=== PATIENT | female | born 1965 | race Caucasian/White ===

== ENCOUNTER → 2017-11-22 10:19 | Outpatient (CLI) | payer MEDICAID | END | disposition home or self-care (01) | LOC: D.NM 10:19 | DX: R10.9 Unspecified abdominal pain (principal); R11.2 Nausea with vomiting, unspecified ==

== ENCOUNTER 2018-03-20 22:38 | Emergency (ER) | payer MEDICAID ==
[~2018-03-20] VITALS: Ht 152.4 cm; Wt 65.9 kg
[2018-03-20 22:48] VITALS: Ht 152.4 cm; Wt 65.9 kg
[2018-03-20] MEDS ORDERED: ASPIRIN325 MG (22:50)
[2018-03-21 00:12] LABS: APPEARANCE CLEAR (CLEAR); BILIRUBIN NEGATIVE (NEGATIVE); COLOR YELLOW (YELLOW); GLUCOSE NEGATIVE (NEGATIVE); KETONE NEGATIVE (NEGATIVE); NITRITE NEGATIVE (NEGATIVE); PROTEIN NEGATIVE (NEGATIVE); SPECIFIC GRAVITY 1.015 (1.005-1.020); UROBILINOGEN NORMAL (NORMAL)
[2018-03-21 00:14] LABS: BACTERIA NONE SEEN /hpf (NONE SEEN); EPITHELIAL CELLS 0-5 /hpf (0-5); RED CELLS - URINE 0-5 /hpf (0-5); WHITE CELLS - URINE 0-5 /hpf (0-5)
[2018-03-21] MEDS ORDERED: CYCLOBENZAPRINE10 MG PO (01:41)
[2018-03-21] MEDS ORDERED: ACETAMINOPHEN500 M1 PO (01:41)
[2018-03-21] MEDS ORDERED: IBUPROFEN800 MG PO (01:41)
[2018-03-21 02:10] VITALS: BP 151/82
== END 2018-03-21 02:18 | disposition home or self-care (01) ==
LOC: D.ER 22:38
PROVIDERS: Family Medicine
DX: M54.5 Low back pain (principal); M54.31 Sciatica, right side; M62.830 Muscle spasm of back; Z86.73 Personal history of transient ischemic attack (TIA), and cerebral infarction without residual deficits

== ENCOUNTER 2019-03-26 08:37 | Outpatient (CLI) | payer MEDICAID ==
[2018-03-20 22:48] VITALS: BMI 28.3
[~2019-03-26 08:37] MED LIST: ACETAMINOPHEN500 M1 PO; ASPIRIN325 MG PO; CYCLOBENZAPRINE10 MG PO; IBUPROFEN800 MG PO
[2019-05-27] MEDS ORDERED: VERAPAMIL PO (09:24)
[2019-05-27] MEDS ORDERED: HCTZ25 MG PO (09:26)
[2019-05-27] MEDS ORDERED: TOPAMAX200 MG PO (09:29)
[2019-05-27] MEDS ORDERED: VERAPAMIL HCL80 MG PO ×2 (13:02→13:03)
[2019-05-28 17:32] VITALS: BMI 27.5
== END 2019-03-26 10:12 | disposition home or self-care (01) ==
LOC: D.OPS 08:37
PROVIDERS: ATTEND Surgery
DX: K44.9 Diaphragmatic hernia without obstruction or gangrene (principal)

== ENCOUNTER 2019-05-28 06:30 | Day surgery (SDC) | payer MEDICAID ==
[2019-05-27 10:35] LABS: BASOPHILS 0.1 % (0-2); EOSINOPHILS 1.3 % (0-7); HEMATOCRIT 39.5 % (36.0-48.0); HEMOGLOBIN 13.1 g/dL (12-16); IMMATURE GRANULOCYTES 0.3 % (0-5); LYMPHOCYTES 23.4 % (15-50); MCH 31.1 pg (26.0-34.0); MCHC 33.2 g/dL (31.0-37.0); MCV 93.8 fL (80.0-100.0); MONOCYTES 7.6 % (2-11); NEUTROPHILS 67.3 % (40-80); PLATELET COUNT 376 10x3/uL (130-400); RBC 4.21 10x6/uL (4.00-5.40); RDW 13.7 % (11.5-14.5); WBC 10.1 10x3/uL (4.8-10.8)
[2019-05-27 10:51] LABS: CALC OSMOLALITY 279 mosm/kg (275-300); CALCIUM 9.1 mg/dL (8.5-10.1); CARBON DIOXIDE 27.6 mmol/L (21.0-32.0); CHLORIDE - SERUM 104 mmol/L (98-107); CREATININE - SERUM 0.6 mg/dL (0.6-1.3); GLUCOSE 92 mg/dL (74-106); POTASSIUM - SERUM 3.8 mmol/L (3.5-5.1); SODIUM 141 mmol/L (136-145); UREA NITROGEN 9 mg/dL (7-18); eGFR NON AFRICAN AMERICAN > 90 mL/min (90-120)
[2019-05-28] VITALS (11 sets, daily range): BP systolic 132–161; BP diastolic 80–98; Ht 157.5 cm; Wt 68.2 kg
[~2019-05-28] VITALS: Ht 157.5 cm; Wt 68.2 kg
--- NOTE | ~2019-05-28 | OP ---
PATIENT NAME: TANVI KINCAID MEDICAL RECORD: [id number] :63 LOCATION:D.[facility] [place].2230 ADMISSION DATE: SURGEON: OSBALDO MCNEAL MD DATE OF OPERATION: 05/28/2019 PREOPERATIVE DIAGNOSES: 1. Paraesophageal hernia. 2. Gastroesophageal reflux disease. 3. Esophageal dysmotility. 4. Hypertension. 5. History of cerebrovascular accident. POSTOPERATIVE DIAGNOSES: 1. Paraesophageal hernia. 2. Gastroesophageal reflux disease. 3. Esophageal dysmotility. 4. Hypertension. 5. History of cerebrovascular accident. PROCEDURE: Laparoscopic paraesophageal hernia repair with Toupet fundoplication. SURGEON: Osbaldo Mcneal MD REPORT OF PROCEDURE: The patient's abdomen was prepped and draped in sterile fashion. A Veress needle was inserted in the left upper quadrant and the abdomen was insufflated. An 11-mm Visiport trocar was inserted in the midline just above the umbilicus. We could see the Veress needle and there was no sign of any injury to bowel or surrounding structures, so this was removed. An 11-mm trocar was then placed in the left subcostal region, a 5-mm trocar was placed in the epigastrium, a 5-mm trocar was placed in the right lateral subcostal region, and a final 5-mm trocar was placed in left lateral abdomen. We were able to grasp the patient's stomach, which was extending about a third of the way up into the patient's chest. We placed a liver retractor to elevate the left lobe of the liver. We were able to pull this portion of the stomach down, but with release it would fall back into the thoracic cavity. We began our dissection by taking down the lesser omentum using Harmonic scalpel up to the right side of the right brenda. The dissection was completed as far anteriorly and posteriorly as possible and then we scored the peritoneum and entered the thoracic cavity taking down the hernia sac. We continued this dissection deep up into the patient's chest. Eventually, we went to the greater curvature of the stomach and starting on the upper third of the stomach, we took down the short gastrics using Harmonic scalpel. We continued this over the fundus and to the left side of the right brenda and again we scored the peritoneum and took down the hernia sac until we had a 360-degree inspection of the patient's esophagus. The hernia sac was then excised. We could see the layout of the gastroesophageal junction more clearly. Once this was in place, we could see the esophageal hiatus and it was enlarged. We reapproximated the edges of this using interrupted 0 Polydeks times 3. There was good approximation of the tissue and it appeared to rest around the esophagus nicely. We then performed a 270-degree posterior wrap of the fundus of the stomach around the distal esophagus. This was sutured in place with interrupted 0 Polydeks times 6. The wrap appeared to rest in good position and did not appear to be causing too much tension. The abdomen was inspected and there was no sign of any active bleeding present. We then closed the 11-mm trocar site fascias using interrupted 0 Vicryls using a OPERATIVE REPORT [id number] ATNVI KINCAID suture passer device. The ports and insufflation were then removed. The skin incisions were infused with a total of 10 mL of 0.25% Marcaine with epinephrine and then closed with subcutaneous 5-0 Monocryl. COMPLICATIONS: None. CONDITION: Stable. ANESTHESIA: General endotracheal and local. BLOOD LOSS: Minimal. TRANSINT:[id number] Voice Confirmation ID: [id number] DOCUMENT ID: [id number] OSBALDO MCENAL MD CC: INGA SIERRA and TACO RIBEIRO DO [id number] DICTATION DATE: 05/28/19 1217 ELECTRICAL TESTS SUPERVISOR: 05/28/19 1344 REG [facility] [address] [place] [address]
[~2019-05-28 06:30] MED LIST changes: +HCTZ25 MG PO; +TOPAMAX200 MG PO; +VERAPAMIL HCL80 MG PO; +VERAPAMIL PO
[2019-05-28] MEDS ORDERED: AJOVY225 MG/1.5 SC (07:27)
--- NOTE | 2019-05-28 13:29 | NUR ---
1320 BP 173/103 B CRISTIANO TEMPLE CONSULTED. ORDERS FOR APRESOLINE 5 MG RECEIVED
--- NOTE | 2019-05-28 14:05 | NUR ---
PT RECIEVED FROM RECOVERY VIA BED. LYING IN BED WITH EYES CLOSED, OPENS EYES WHEN SPOKEN TO. RESP EVEN AND UNLABORED. O2 @ 2L NC. IV TO LEFT HAND WITH NS @ 125ML/HR INFUSING VIA PUMP. SITE WITHOUT REDNESS OR EDEMA. LAP SITES X 5 NOTED TO ABDOMEN. NO DRAINAGE NOTED. REPORTS PAIN 3/10 AT THIS TIME. ORIENTED TO CL AND BED CONTROLS AT THIS TIME. EDUCATED REGARDING NPO STATUS. PT VOICES UNDERSTANDING. DENIES FURTHER NEEDS AT THIS TIME. CL WITHIN REACH. ENCOURAGED TO CALL WITH NEEDS.
--- NOTE | 2019-05-28 19:20 | NUR ---
LYING IN BED WITH TELEVISION ON, ABLE TO VOICE ALL NEEDS. DENIES ANY PAIN AT THIS TIME. WILL NOTE ANY CHANGE.
--- NOTE | 2019-05-28 23:18 | NUR ---
I have reviewed this patient and I concur with the Shift Assessment completed by the Licensed Practical Nurse today this shift.
[2019-05-29 01:04] VITALS: BP 163/90
[2019-05-29 05:50] VITALS: BP 165/90
[2019-05-29 06:40] LABS: CALC OSMOLALITY 276 mosm/kg (275-300); CALCIUM 8.6 mg/dL (8.5-10.1); CARBON DIOXIDE 26.7 mmol/L (21.0-32.0); CHLORIDE - SERUM 105 mmol/L (98-107); CREATININE - SERUM 0.5 mg/dL (0.6-1.3); GLUCOSE 107 mg/dL (74-106); POTASSIUM - SERUM 3.6 mmol/L (3.5-5.1); SODIUM 140 mmol/L (136-145); UREA NITROGEN 8 mg/dL (7-18); eGFR NON AFRICAN AMERICAN > 90 mL/min (90-120)
[2019-05-29 07:09] LABS: BASOPHILS 0.1 % (0-2); EOSINOPHILS 0 % (0-7); HEMATOCRIT 35.3 % (36.0-48.0); HEMOGLOBIN 11.6 g/dL (12-16); IMMATURE GRANULOCYTES 0.3 % (0-5); LYMPHOCYTES 9.1 % (15-50); MCH 30.9 pg (26.0-34.0); MCHC 32.9 g/dL (31.0-37.0); MCV 94.1 fL (80.0-100.0); MEAN PLATELET VOLUME 9.4 fL (7.4-10.4); MONOCYTES 9.9 % (2-11); NEUTROPHILS 80.6 % (40-80); PLATELET COUNT 367 10x3/uL (130-400); RBC 3.75 10x6/uL (4.00-5.40); RDW 13.9 % (11.5-14.5)
[2019-05-29 07:20] LABS: WBC 16.2 10x3/uL (4.8-10.8)
[2019-05-29 08:36] VITALS: BP 154/87
[2019-05-29 12:55] VITALS: BP 160/98
[2019-05-29] MEDS ORDERED: HYDROCODON-ACE1 EA10 PO (13:11)
[2019-05-29] MEDS ORDERED: REGLAN10 MG PO (13:11)
--- NOTE | 2019-05-29 15:02 | MORECARE ---
CASE MANAGEMENT DISCHARGE SUMMARY PATIENT: TANVI KINCAID UNIT: [id number] ADM DATE: 05/28/19 AGE: 54 : 63 SEX: F ROOM/BED: D.2230 AUTHOR: SANCHEZ SIMS PHYSICIAN: REFERRING PHYSICIAN: ALINA MCNEAL MD DATE OF SERVICE: 05/29/19 Discharge Plan Patient Name: TANVI KINCAID Facility: [facility]:[place] : 1965 Planned Disposition: Anticipated Discharge Date: 05/29/19 Discharge Date: Expected LOS: 1 Initial Reviewer: [email or web address] Initial Review Date: 05/29/2019 Generated: 05/29/19 4:02 pm Patient Name: TANVI KINCAID Page 79830 at 1502 All edits/amendments must be made on the electronic document DICTATION DATE: 05/29/19 150 DIRECTOR MARKETING COMMUNICATIONS: ESHA 05/29/19 1502 RPT#: [id number] DC DATE: STATUS: REG [facility] [address] [place] [address] END OF REPORT
--- NOTE | 2019-06-03 14:15 | MORECARE ---
CASE MANAGEMENT DISCHARGE SUMMARY PATIENT: TANVI KINCAID UNIT: [id number] ADM DATE: 05/28/19 AGE: 54 : 63 SEX: F ROOM/BED: AUTHOR: SANCHEZ SIMS PHYSICIAN: REFERRING PHYSICIAN: ALINA MCNEAL MD DATE OF SERVICE: 06/03/19 Discharge Plan Patient Name: TANVI KINCAID Facility: [facility]:[place] : 1965 Planned Disposition: Anticipated Discharge Date: 05/29/19 Discharge Date: 05/29/2019 Expected LOS: 1 Initial Reviewer: [email or web address] Initial Review Date: 05/29/2019 Generated: 06/03/19 3:14 pm Last DP export: 05/29/19 2:02 p Patient Name: TANVI KINCAID Page 68798 at 1415 All edits/amendments must be made on the electronic document DICTATION DATE: 06/03/19 141 DUMP MOTORMAN: ESHA 06/03/19 1414 RPT#: [id number] DC DATE:05/29/19 STATUS: [address] [address] END OF REPORT
== END 2019-05-29 17:10 | disposition home or self-care (01) ==
LOC: D.OPS 06:30 → D.MS 06:30 → D.OPS 07:15 → D.PAN 07:15 → D.OPS 07:30 → D.PAN 07:30 → D.OPS 09:45 → D.MS 13:36 → D.OPS 05-29 17:10
PROVIDERS: ATTEND Surgery
DX: K44.9 Diaphragmatic hernia without obstruction or gangrene (principal); K21.9 Gastro-esophageal reflux disease without esophagitis; K22.4 Dyskinesia of esophagus; I10 Essential (primary) hypertension; Z86.73 Personal history of transient ischemic attack (TIA), and cerebral infarction without residual deficits; R13.10 Dysphagia, unspecified